=== PATIENT | male | born 1990 | race Caucasian/White ===

== ENCOUNTER 2019-01-31 02:24 | Emergency (ER) | payer SELFPAY ==
[~2019-01-31] VITALS: Ht 177.8 cm; Wt 86.5 kg
[2019-01-31] MEDS ORDERED: BACITRACIN ZINC OINT UDPKT TOP ONE (04:00)
[2019-01-31 04:22] VITALS: BP 151/99
== END 2019-01-31 04:10 | disposition home or self-care (01) ==
LOC: ER 02:24
DX: S40.852A Superficial foreign body of left upper arm, initial encounter (principal); S30.851A Superficial foreign body of abdominal wall, initial encounter; Y35.893A Legal intervention involving other specified means, suspect injured, initial encounter; Y93.89 Activity, other specified; Y92.89 Other specified places as the place of occurrence of the external cause
CPT/HCPCS: 10120; 99284; Z7610